=== PATIENT | male | born 1950 | race Caucasian/White ===

== ENCOUNTER → 2018-03-10 06:35 | Outpatient (CLI) | payer BC ==
[2016-07-26 06:22] VITALS: BMI 28.1
[~2018-03-10 06:35] MED LIST: ALLEGRA-D1 TAB.SR1 PO; GLUCOPHAGE500 MG PO; LISINOPRIL10 MG PO
== END | disposition home or self-care (01) ==
LOC: D.MRI 06:35
DX: R16.0 Hepatomegaly, not elsewhere classified (principal)

== ENCOUNTER 2018-03-18 05:36 | Outpatient (CLI) | payer BC ==
[~2018-03-18] VITALS: Ht 177.8 cm; Wt 86.4 kg
[~2018-03-18 05:36] MED LIST changes: -GLUCOPHAGE500 MG PO; -LISINOPRIL10 MG PO
[2018-03-18 05:53] LABS: BASOPHILS 0.3 % (0-2); EOSINOPHILS 3.5 % (0-7); HEMATOCRIT 44.6 % (42.0-54.0); HEMOGLOBIN 15.3 g/dL (13.5-17.5); IMMATURE GRANULOCYTES 0.3 % (0-5); LYMPHOCYTES 39.5 % (15-50); MCH 28.6 pg (26.0-34.0); MCHC 34.3 g/dL (31.0-37.0); MCV 83.4 fL (80.0-100.0); MEAN PLATELET VOLUME 9.4 fL (7.4-10.4); MONOCYTES 9.7 % (2-11); NEUTROPHILS 46.7 % (40-80); PLATELET COUNT 260 10x3/uL (130-400); RBC 5.35 10x6/uL (4.20-6.10); RDW 13.2 % (11.5-14.5); WBC 6.1 10x3/uL (4.8-10.8)
[2018-03-18] MEDS ORDERED: GLUCOPHAGE500 MG PO (06:11)
[2018-03-18] MEDS ORDERED: LISINOPRIL10 MG PO (06:12)
[2018-03-18 06:14] LABS: ANION GAP 8.1 mmol/L (8-16); CALCIUM 8.6 mg/dL (8.5-10.1); CARBON DIOXIDE 30.3 mmol/L (21.0-32.0); CREATININE - SERUM 1.1 mg/dL (0.6-1.3); POTASSIUM - SERUM 4.4 mmol/L (3.5-5.1)
[2018-03-18 06:18] VITALS: BP 127/84; Ht 177.8 cm; Wt 86.4 kg
[2018-03-18 06:48] LABS: APTT 25.5 SECONDS (22.8-39.4); INR 0.94 (0.85-1.17)
== END 2018-03-18 12:00 | disposition home or self-care (01) ==
LOC: D.SP 05:36
PROVIDERS: Radiology Vascular & Interventional Radiology
DX: K76.9 Liver disease, unspecified (principal); Z01.812 Encounter for preprocedural laboratory examination